=== PATIENT | male | born 1975 | race Caucasian/White ===

== ENCOUNTER → 2016-10-31 | Outpatient (CLI) | payer MEDICARE ==
[~2016-10-31] MED LIST: COLESTID1 GM PO; CREON DR 36,001 EACH PO; DEPO-TESTO200 MG/1 M IM; ELAVIL 50 MG TA50 MG PO; PROTONIX40 M1 PO; PROTONIX40 MG PO; ULTRAM50 MG PO; VITAMIN D350000 UNIT PO; ZYLOPRIM 100 M100 MG PO
[2016-10-31 15:47] LABS: HEMOGLOBIN 13.8 gm/dl (14.0-17.5); RED BLOOD COUNT 4.84 M/UL (4.20-5.50); WHITE BLOOD COUNT 7.8 K/UL (4.5-11.0)
[2016-10-31 16:04] LABS: BUN/CREATININE RATIO 10 (0-10)
== END ==
LOC: LAB 15:10
PROVIDERS: Nurse Practitioner Family
DX: K86.1 Other chronic pancreatitis (principal); R11.0 Nausea
CPT/HCPCS: 36415; 80053; 82150; 83690; 85025

== ENCOUNTER → 2016-11-07 | Outpatient (CLI) | payer MEDICARE | LOC: LAB 08:40 | DX: E29.1 Testicular hypofunction (principal); E03.9 Hypothyroidism, unspecified | CPT/HCPCS: 36415; 84402; 84443 ==

== ENCOUNTER → 2020-09-26 | Outpatient (CLI) | payer MEDICARE ==
[~2020-09-26] MED LIST changes: +MEDROL DOSEPAK 24 MG PO; +NORVASC 5 MG TAB5 MG PO; +ZANAFLEX4 MG PO
== END ==
LOC: CT 09:00
DX: M54.2 Cervicalgia (principal); M25.511 Pain in right shoulder; R10.13 Epigastric pain; R63.0 Anorexia; K86.1 Other chronic pancreatitis; I86.4 Gastric varices; R11.0 Nausea; I82.891 Chronic embolism and thrombosis of other specified veins; K76.0 Fatty (change of) liver, not elsewhere classified
CPT/HCPCS: 36415; 72040; 73030; 74160; 82565; 84520; Q9967

== ENCOUNTER → 2021-12-19 | Outpatient (CLI) | payer MEDICARE ==
[2021-12-19 12:41] LABS: HEMOGLOBIN 14.6 gm/dl (14.0-17.5); RED BLOOD COUNT 5.04 M/UL (4.20-5.50); WHITE BLOOD COUNT 6.4 K/UL (4.5-11.0)
[2021-12-19 13:04] LABS: BUN/CREATININE RATIO 9 (0-10)
[2021-12-20 07:11] LABS: ANTISTREPTOLYSIN O AB 114.2 IU/mL (0.0-200.0); RHEUMATOID ARTHRITIS FACTOR <10.0 IU/mL (<14.0); VITAMIN D, 25-HYDROXY 22.6 ng/mL (30.0-100.0)
[2021-12-20 11:13] LABS: CREATININE, URINE 92.9 mg/dL (Not Estab.)
== END ==
LOC: LAB 11:43
PROVIDERS: Nurse Practitioner Family
DX: R73.9 Hyperglycemia, unspecified (principal); M25.50 Pain in unspecified joint; M54.30 Sciatica, unspecified side; R93.7 Abnormal findings on diagnostic imaging of other parts of musculoskeletal system; R63.0 Anorexia; E78.00 Pure hypercholesterolemia, unspecified; I10 Essential (primary) hypertension; K86.1 Other chronic pancreatitis; R19.7 Diarrhea, unspecified; E53.8 Deficiency of other specified B group vitamins; E55.9 Vitamin D deficiency, unspecified; R11.0 Nausea; R53.82 Chronic fatigue, unspecified
CPT/HCPCS: 36415; 80053; 80061; 82043; 82150; 82570; 82607; 83036; 83690; 84439; 84443; 84550; 85025; 85652; 86038; 86060; 86140; 86431